=== PATIENT | male | born 1980 | race Caucasian/White ===

== ENCOUNTER 2019-04-04 09:00 | Outpatient (CLI) | payer OTHER | END 2019-04-04 23:59 | disposition home or self-care (01) | LOC: LAB.R 09:00 | PROVIDERS: ATTEND Physician Assistant Medical | DX: J35.1 Hypertrophy of tonsils (principal) | CPT/HCPCS: 87070 ==

== ENCOUNTER 2019-07-17 14:09 | Outpatient (CLI) | payer OTHER ==
[2019-07-17 16:33] VITALS: BP 140/84
--- NOTE | 2019-07-17 16:33 | SLEEP CARE CONSULTATION ---
Information from patient questionnaire entered by Katherine Gordillo. I have reviewed and concur with the information entered by Katherine Gordillo. This document represents the service I personally performed and the decisions made by me, Pieter Savage MD, [facility]. History of Present Illness Reason for Visit: New patient, Previously diagnosed sleep apnea Chief Complaint: reports: Other (diagnosed with Sleep Apnea, machine broke and never replaced) Duration of Symptoms: years Usual bedtime: 3316-6222 Time it takes to fall asleep: 20 minutes Snores at night: Yes Observed to quit breathing while asleep: Yes Sleeps alone due to snoring: No Number of times waking at night: 2-4 Reasons for waking at night: reports: Snoring, Gasping for air, Bathroom Toss, Turn, or Twitch while sleeping: Yes Recalls having dreams: No Usually gets out of bed at: 0600 Feels refreshed in the morning: No Morning headache: Yes Sleepy or fatigued during the day: Yes Ever fallen asleep while driving: No Takes day naps: Yes (sometimes) Dreams during day naps: No Prior sleep studies: Yes Year and Where: [facility] Additional HPI information: I had the pleasure of seeing Mr. Posada regarding obstructive sleep apnea- hypopnea. As you know, he is a 39 year old gentleman who was diagnosed with the sleep-disordered breathing at the [facility] 8 years ago. The results are not available because the facility closed 3 years ago. He was prescribed a CPAP which he used consistently for 2 3 years until it broke. He wore a nasal mask. [employer] was his durable medical supplier. Without CPAP he snores and wakes up gasping. He feels sleepy during the day. 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 Patient is and lives in [place]. Have you smoked in the past 12 months: No Alcohol use: Yes Alcohol amount and frequency: 1 drink, very rarely Caffeine use: Yes Caffeine amount and frequency: 1 coffee/day Family History Family history of sleep disordered breathing: Yes Family Hx Sleep Apnea: Mother: Sleep apnea - Treated Allergies and Home Medications Drug allergies reviewed: Yes (sulfa) Home medication list reviewed: Yes (none) Review of Systems Weight gain over past 5 years: 30 Cardiovascular: denies: high blood pressure, palpitations, chest pain, irregular heart rate or pulse, leg or foot swelling, have to sleep sitting up, other Respiratory: denies: shortness of breath, wheeze, sputum production, chronic cough, other Gastrointestinal: denies: heartburn, difficulty swallowing, nausea, vomitting, diarrhea, abdominal pain, other Urinary: denies: incontinence, frequency, urgency, impotence, other Neurological: denies: headaches, seizure, head trauma, disorientation, speech dysfunction, gait or balance problems, fainting or unconsciousness, other Psychiatric: reports: anxiety, depression Ear/Nose/Throat: reports: wisdom teeth removed Musculoskeletal: reports: neck pain, back pain Immunologic: reports: allergies to food or environment Physical Exam Vital signs obtained and entered by: Dr. Savage Blood Pressure: 140/84 Cuff size: regular Heart Rate: 64 O2 Saturation: 98 Height: 5 ft 9 in Weight: 206 lb Body Mass Index: 30.4 BMI Classification: Obesity Class 1 Neck circumference: 16.5 HEENT: No craniofacial malformation Nostrils: patent to airflow Turbinates: normal Septum: midline Mouth and throat: narrow oropharynx Soft palate: long Hard palate: normal Uvula: normal Uvula visualization: 25% Mallampati Class III Tongue: normal in size Tonsils: small Chin and jaw: normal size and position Neck: normal w/o lymphadenopathy or thyromegaly Heart: regular rate and rhythm Lungs: clear bilaterally Abdomen: soft, non-tender Extremities: no edema or clubbing Neurologic: intact, no focal deficits Impression and Plan IMPRESSION: 1. Obstructive Sleep Apnea-Hypopnea Syndrome, as previously diagnosed, but the severity is unknown. The patient experienced improvement on CPAP. He has not used the CPAP for many years ago after it broke. He is again symptomatic for loud and irregular snoring, unrefreshed sleep, cognitive impairment, and daytime hypersomnolence. Narrow oropharynx and obesity are common predisposing factors for obstructive sleep apnea-hypopnea syndrome. Pathophysiology of sleep- disordered breathing was discussed. I recommend repeating the in-laboratory polysomnography to confirm the diagnosis and to assess severity. I informed the patient of what the sleep studies involve and after some discussion, he agreed to proceed. Plan: 1. Schedule an in-laboratory polysomnography 2. Avoid long distance driving or when feeling sleepy. 3. Avoid alcohol, sedative and muscle relaxant around bedtime. 4. Attempt to lose weight. 5. Return for follow up after the sleep study. I spent 100% of this visit face to face with the patient with greater than 50% of this was spent time counseling the patient and coordination of care.
== END 2019-07-17 14:10 ==
LOC: SC 14:09
PROVIDERS: ATTEND Internal Medicine Pulmonary Disease
DX: G47.33 Obstructive sleep apnea (adult) (pediatric) (principal); E66.9 Obesity, unspecified; Z68.30 Body mass index [BMI] 30.0-30.9, adult
CPT/HCPCS: 99203; 99212

== ENCOUNTER 2019-09-10 14:54 | Outpatient (CLI) | payer OTHER ==
--- NOTE | 2019-09-10 23:07 | SLEEP CARE CONSULTATION ---
Information from patient questionnaire entered by Kalani Martin. I have reviewed and concur with the information entered by Kalani Martin. This document represents the service I personally performed and the decisions made by me, Pieter Savage MD, [facility]. History of Present Illness Initial [place] Sleepiness Scale score: 10 Additional HPI information: To minimize the risk of COVID-19 exposure, we have the option to conduct your visit with me over the phone. I will be able to discuss your health and offer medical advice. If you agree, we will bill your insurance. Do you agree to this telephone service: YES HPI: Mr. Lara was called to follow up of the sleep study he had on 08/09/2019. The polysomnography showed that the patient had normal sleep efficiency. Except for mild sleep fragmentation, the sleep architecture was normal as well. Respir atory monitoring showed mild obstructive sleep apnea-hypopnea (AHI = 7.3) associated with frequent arousals, oxyhemoglobin desaturation and mild hypoxia (chalo oxygen saturation of 87%). The respiratory events occurred almost exclusively during supine sleep (supine AHI = 8.7; non-supine = 2.01). Snore was moderate in intensity. There was no significant periodic leg movement of sleep. Cardiac rhythm was normal sinus rhythm without significant arrhythmia. No abnormal behavior (parasomnia) observed during the night. The patient was informed of these findings. I explained to him the pathophysiology behind obstructive sleep apnea. We then spent quite a bit of time discussing different treatment options. For mild obstructive sleep apnea, surgery and oral appliance are alternatives to nasal CPAP therapy but in moderate or severe cases, nasal CPAP is the most effective and reliable treatment. Weight loss in an obese individual is strongly recommended. After some discussion, he opted to start using CPAP again. The patient was originally diagnosed by [facility] and used CPAP for a few years until it broke. He got his supplies from [employer]. Allergies and Home Medications Drug allergies reviewed: Yes Home medication list reviewed: Yes Impression and Plan IMPRESSION: 1. Obstructive Sleep Apnea-Hypopnea Syndrome, mild, associated with mild hypoxemia and sleep fragmentation. Possibly, this is the cause of the patients symptoms of unrefreshed sleep, and excessive daytime sleepiness. As mentioned above, the patient will be started on an autoCPAP set at 5 - 15 cmH2O. Depending on his response and compliance he may be brought back for an overnight CPAP titration study. PLAN: 1. Prescription made for an autoCPAP, heated humidifier, and related supplies. The prescription will be faxed to [facility] because he has [employer] as his insurance. 2. Attempt to lose weight and avoid alcohol consumption near bedtime. 3. Return in six weeks for follow up. I will assess his response and compliance at that time. I spent 100% of the 12 minute phone call with the patient with greater than 50% of this spent counseling the patient and coordination of care.
== END 2019-09-10 14:55 | disposition home or self-care (01) ==
LOC: SC 14:54
PROVIDERS: ATTEND Internal Medicine Pulmonary Disease
DX: G47.33 Obstructive sleep apnea (adult) (pediatric) (principal)

== ENCOUNTER 2019-12-26 10:36 | Outpatient (CLI) | payer OTHER ==
[2019-12-26 11:46] VITALS: BP 130/80
--- NOTE | 2019-12-26 11:46 | SLEEP CARE CONSULTATION ---
Information from patient questionnaire entered by Kalani Martin. I have reviewed and concur with the information entered by Kalani Martin. This document represents the service I personally performed and the decisions made by me, Shannon Horton, RN, MSN, [employer]. History of Present Illness Service Date and Time: 12/26/2019 1036 Previous diagnosis: Mild, Obstructive Sleep Apnea-Hypopnea Syndrome AHI: 7.3 (in 2019) Reason for follow up: first compliance Equipment type: CPAP Equipment obtained from: [facility] (getting supplies as needed.) Mask style: Full face (changed to full face mask as the nasal pillows mask was not working and he would wake with air coming out of mouth disturbing spouse. He also has a chinstrap to use if wants to go back to nasal pillows.) Backup mask available: Yes Last cushion change: none since mask style change. Prior sleep studies: Yes Year and Where: 2019 - [facility] Type of Sleep Study: Polysomnography CPAP Compliance Data - Data Reviewed with Patient Average duration of nightly device use: 7.1 Compliance rate %: 96.7 Current pressure setting (cmH2O): 5-15 Humidity settin Heated hose settin Average residual AHI: 5.8 (mean 6mcH20 / 90% 7.8cmH20) Central apnea: 0.7 Obstructive apnea: 1.2 Hypopnea: 3.9 Average large leak: 6 min 38 sec Subjective Patient concerns: reports: air blowing in eyes (before mask adjustment at start of therapy and resolves with adjustment ), nasal congestion (increase in nasal congestion recently with allergies and sudden clear runny nose with starting CPAP- He started his Claritin and Flonase for seasonal allergies and resolved rhinorrhea), other (nose itch occasionally so he lifts mask slightly to scratch and this wakes his spouse. ). denies: aerophagia, mask discomfort, mask leak noise, condensation in mask/hose, dry mouth, nose, throat, epistaxis (none after first two weeks) Observed to snore while using device: No Current pressure setting perceived as: comfortable On therapy, patient: reports: sleeping better, awakening more refreshed, being more awake and alert during the day, more rested overall. denies: drowsiness while driving Initial [place] Sleepiness Scale score: 10 (in 2019) Current [place] Sleepiness Scale score: 5 Allergies and Home Medications Known drug allergies: Yes (sulfa ) Home medication list reviewed: No (no changes ) Review of Systems Review of systems same as previous: No (back strain and resolved) Physical Exam Blood Pressure: 130/80 Cuff size: long Heart Rate: 58 O2 Saturation: 98 Height: 5 ft 9 in Weight: 206 lb 12.8 oz Body Mass Index: 30.5 BMI Classification: Obese Impression and Plan 1. Obstructive Sleep Apnea-Hypopnea Syndrome, mild , with good treatment compliance and mild elevation of residual AHI. The patients pressure will be changed to autoCPAP 8-12 cmH20 For elevation of residual AHI. Patient advised to contact me if pressure change is uncomfortable so that it can be adjusted. Goals for apnea control discussed.On CPAP therapy, the patient has better sleep quality and is more rested overall. To avoid falling asleep without CPAP after talking with spouse in bed getting ready for sleep, he can put on a phone alarm for his proposed bedtime. Now that he prefers the use of a full face mask , he is advised to contact [facility] with his mask choice for replacements. The full face mask can be replaced monthly when he changes the filter and other supplies to check his list. Questions about cleaning devices answered and informed of FDA warnings. Regular washing of equipment discussed as guided by DME. Nasal congestion can be reduced with increasing the CPAP humidity. The heated hose can be adjusted higher if condensation with higher humidity setting. Saline nasal spray sample was also given to use prior to CPAP to clear nasal secretions and wash off any nasal allergens to facilitate nasal breathing and to use prior to Flonase for better medication adherence. In addition, a steamy shower before bed will often assist nasal drainage was recommended in place of morning shower which could also reduce initial rhinorrhea with rationale discussed. Verbal instructions given on how to change humidity and heated hose settings with rationale explaining why to change. After implementing the above changes, he may be able to reduce the use Claritin and Flonase dependent upon symptoms. If recurrent epitaxis, small amount of blood on tissue after blowing nose, he can increase humidity further. He is also to check if Flonase administration is correct as this can also cause nasal septum irritation. Patient's apnea severity and rationale for treatment to reduce apnea, improve sleep quality and reduce cardiovascular and cerebrovascular events was reviewed. Since patient has more severe apnea in supine position, patient advised to avoid supine sleep with pillow positioning if unable to use CPAP while ill or if without electricity to reduce apnea risk.ewed. His BMI is 30.8 and he is working on weight loss. * * Change auto CPAP pressure to 8-12 cmH2O * Implement methods to reduce nasal congestion. * Notify me if snoring with mask or feeling that the pressure is too much or too little * Attempt to lose weight * Avoid supine sleep if unable to use CPAP. * Call this office if any problems using CPAP * Return for follow up in 1-2 months , or sooner if concerns arise Visit Type: In Office Time Spent with Patient (minutes): 40 Provider Statement: I spent 100% of the Face to Face Visit with the patient with greater than 50% spent counseling the patient and coordination of care.
== END 2019-12-26 10:37 | disposition home or self-care (01) ==
LOC: SC 10:36
PROVIDERS: ATTEND Nurse Practitioner Family
DX: G47.33 Obstructive sleep apnea (adult) (pediatric) (principal); E66.9 Obesity, unspecified; Z68.30 Body mass index [BMI] 30.0-30.9, adult
CPT/HCPCS: 99212; 99215

== ENCOUNTER 2020-03-28 12:42 | Outpatient (CLI) | payer OTHER ==
--- NOTE | 2020-03-28 11:46 | SLEEP CARE CONSULTATION ---
Information from patient questionnaire entered by Katherine Gordillo. I have reviewed and concur with the information entered by Katherine Gordillo. This document represents the service I personally performed and the decisions made by me, Rocio Vilchis ARNP. History of Present Illness Service Date and Time: 03/28/2020 1120 Previous diagnosis: Mild, Obstructive Sleep Apnea-Hypopnea Syndrome AHI: 7.3 (in 2019) Reason for follow up: other (2 month with pressure change) Equipment type: CPAP Equipment obtained from: [facility] (getting supplies as needed) Mask style: Full face Backup mask available: No (will keep mask when gets new mask) Last cushion change: 2 weeks ago Prior sleep studies: Yes Year and Where: 2019 - [facility] Type of Sleep Study: Polysomnography HPI additional information: BETTY BLACKMAN was diagnosed to have mild, AHI 7.3, obstructive sleep apnea- hypopnea syndrome and is seen today for CPAP therapy two month pressure change follow-up on a Telehealth video. Sleep Study - Results Prior sleep studies: Yes Year and Where: 2019 - [facility] CPAP Compliance Data - Data Reviewed with Patient Average duration of nightly device use: 5 hours 46 minutes Compliance rate %: 73.3 Current pressure setting (cmH2O): 6-8.5 Humidity settin Heated hose settin Average residual AHI: 6.0 Average large leak: 28 minutes 34 seconds Subjective Patient concerns: reports: aerophagia (worse after pressure change, most mornings), mask leak noise, other (mask air leaks since cheney has been getting longer). denies: mask discomfort, air blowing in eyes, condensation in mask/hose, nasal congestion, dry mouth, nose, throat, epistaxis Observed to snore while using device: No Current pressure setting perceived as: comfortable On therapy, patient: reports: sleeping better, awakening more refreshed, being more awake and alert during the day, more rested overall. denies: drowsiness while driving Initial [place] Sleepiness Scale score: 10 (in 2019) Allergies and Home Medications Drug allergies reviewed: Yes (Sulfa) Home medication list reviewed: Yes (no changes) Review of Systems Review of systems same as previous: Yes (no changes) Physical Exam Height: 5 ft 9 in Impression and Plan 1. Obstructive Sleep Apnea-Hypopnea Syndrome, mild, with fair treatment compliance and fair apnea control with elevated AHI. On CPAP therapy, the patient has better sleep quality and is more rested overall. Patient has been having more mask leaking since his cheney has been getting longer. Mask leaks can be reduced by washing mask daily and changing mask cushions more frequently to improve mask seal and comfort. He was also advised to groom his cheney to a shorter length since this seems to improve the seal and reduce leaks per the patient. Patient states he has had an increase of aerophagia with the increase in pressure. To reduce symptoms of aerophagia, I will have patient use a chinstrap that he already has with the full face mask since he is a mouth- breather, the CPAP pressure will be continued at 6-8.5 cm H2O to see if this will reduce his aerophagia in the mornings. Patient advised to contact me if this does not reduce symptoms or if pressure change uncomfortable. Patient's apnea severity and rationale for treatment to reduce apnea, improve sleep quality and reduce cardiovascular and cerebrovascular events was reviewed. * Continue auto CPAP pressure at 6-8.5 cmH2O * Use chinstrap * Notify me if snoring with mask or feeling that the pressure is too much or too little * Attempt to lose weight * Call this office if any problems using CPAP * Return for follow up in 1-2 months, or sooner if concerns arise Counseling Topics: Spare mask Visit Type: Telehealth Video Video Type: [employer] Location of Provider: Home Patient agrees and consents to this telehealth visit type: Yes Patient agrees to have their insurance billed: Yes Time Spent with Patient (minutes): 15 Provider Statement: I spent 100% of the Telehealth Video Call with the patient with greater than 50% spent counseling the patient and coordination of care.
== END 2020-03-28 12:43 | disposition home or self-care (01) ==
LOC: SC 12:42
PROVIDERS: ATTEND Nurse Practitioner Family
DX: G47.33 Obstructive sleep apnea (adult) (pediatric) (principal)

== ENCOUNTER 2020-05-23 10:13 | Outpatient (CLI) | payer OTHER ==
--- NOTE | 2020-05-23 10:15 | SLEEP CARE CONSULTATION ---
Information from patient questionnaire entered by Kalani Martin. I have reviewed and concur with the information entered by Kalani Martin. This document represents the service I personally performed and the decisions made by me, Shannon Horton, RN, MSN, [employer]. History of Present Illness Service Date and Time: 05/23/2020 0900 Previous diagnosis: Mild, Obstructive Sleep Apnea-Hypopnea Syndrome AHI: 7.3 (in 2019) Reason for follow up: other (2 month) Equipment type: CPAP Equipment obtained from: [employer] (getting supplies as needed) Mask style: Full face Backup mask available: Yes (old mask) Last cushion change: 10 days ago Prior sleep studies: Yes Year and Where: 2019 - [facility] Type of Sleep Study: Polysomnography HPI additional information: Review of last visit notes. He tried chinstrap a couple nights but too uncomfortable to wear . In addition he was having nasal congestion making it hard to breathe out of nose. He has started [place] Pot as needed. He has added Claritin and Flonase to reduce nasal congestion. which has nasal making nasal congestion less. He continues with aerophagia daily reported as distention of abdomen and not resolved often until early afternoon. He feels that ingestion of Gas X a couple of times has assisted with resolution of his symptoms. CPAP Compliance Data - Data Reviewed with Patient Average duration of nightly device use: 5 hr 4 min Compliance rate %: 66.7 Current pressure setting (cmH2O): 6-8.5 Humidity settin Heated hose settin Average residual AHI: 6.5 Central apnea: 0.7 Obstructive apnea: 1.4 Hypopnea: 4.3 Average large leak: 9 min 23 sec Subjective Missed days of use due to: reports: other (back pain and power outage ) Patient concerns: reports: aerophagia, mask discomfort (minimal discomfort at base of headgear after adjustment which resolves initially), air blowing in eyes (waking up to adjust mask when changes position), mask leak noise, nasal congestion (chronic ), other (reports that mask cushion seems to leak more after 2 weeks of use which may be due to cheney trim). denies: condensation in mask/hose, dry mouth, nose, throat, epistaxis Observed to snore while using device: No Current pressure setting perceived as: comfortable On therapy, patient: reports: sleeping better, awakening more refreshed, being more awake and alert during the day, more rested overall. denies: drowsiness while driving Initial [place] Sleepiness Scale score: 10 (in 2020) Current [place] Sleepiness Scale score: 2 Allergies and Home Medications Known drug allergies: Yes (sulfa) Home medication list reviewed: Yes Review of Systems Review of systems same as previous: Yes (back pain) Physical Exam Height: 5 ft 9 in Impression and Plan 1. Obstructive Sleep Apnea-Hypopnea Syndrome, mild , with fair treatment compliance and mild elevated residual apnea. Compliance fell due to back discomfort and power outages. On CPAP therapy, the patient has better sleep quality and is more rested overall. He is pleased with benefit of therapy. However, he continues to have aerophagia that is not resolved until ingests gas x a couple of times and symptoms can sustain until early afternoon. To reduce symptoms of aerophagia, the CPAP pressure will be reduced to 4-7 cmH2O. I reviewed past pressure settings and he has been up to 7cmH20 without aerophagia. Goals of CPAP pressure discussed. Patient advised to contact me if this does not reduce symptoms or if pressure change uncomfortable. He agreed with plan. Nasal congestion can be reduced with increasing the CPAP humidity and reducing the heated hose. The heated hose can be adjusted higher if condensation with higher humidity setting. He is also advised to continue using the [place] pot before bedtime and Flonase when symptoms with rationale explained. In addition, a steamy shower before bed will often assist nasal drainage. Mask leaks predominately from when patient sleeps on their side can be reduced by using a CPAP pillow. Several styles can be purchased online. This is an out of pocket expense. Patient's apnea severity and rationale for treatment to reduce apnea, improve sleep quality and reduce cardiovascular and cerebrovascular events was reviewed. He has had recent power outages and has been unable to use CPAP when had recent back pain. Since patient has more severe apnea in supine position, patient advised to avoid supine sleep with pillow positioning as described if unable to use CPAP while ill or if without electricity to reduce apnea risk. 2. Back pain, chronic, intermittent. Recent occurrence affected CPAP use. He has used pain pills in past for control of symptoms for short periods. This is now not available to him since his past PCP left. Instead a pain specialist was advised. I explained new pain management guidelines. He is advised to establish with a new PCP for further evaluation of his recurrent back pain to see if other treatment such as PT may be helpful. Patient agreed with plan. * * Change auto CPAP pressure to 4-7 cmH2O * Implement methods to reduce nasal congestion. * Follow up with PCP for further evaluation of back pain. * Notify me if snoring with mask or feeling that the pressure is too much or too little * Attempt to lose weight if over weight * Avoid supine sleep if unable to use CPAP. * Call this office if any problems using CPAP * Return for follow up in 1-2 months , or sooner if concerns arise Visit Type: Telehealth Video Video Type: [employer] Patient Location: Home Location of Provider: Home Patient agrees and consents to this telehealth visit type: Yes Patient agrees to have their insurance billed: Yes Time Spent with Patient (minutes): 40 Provider Statement: I spent 100% of the Telehealth Video Call with the patient with greater than 50% spent counseling the patient and coordination of care.
== END 2020-05-23 10:14 | disposition home or self-care (01) ==
LOC: SC 10:13
PROVIDERS: ATTEND Nurse Practitioner Family
DX: G47.33 Obstructive sleep apnea (adult) (pediatric) (principal); F45.8 Other somatoform disorders; M54.9 Dorsalgia, unspecified; G89.29 Other chronic pain

== ENCOUNTER 2020-09-05 14:48 | Outpatient (CLI) | payer OTHER ==
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
== END 2020-09-05 14:49 | disposition home or self-care (01) ==
LOC: SC 14:48
PROVIDERS: ATTEND Nurse Practitioner Family
DX: G47.33 Obstructive sleep apnea (adult) (pediatric) (principal)